=== PATIENT | male | born 1985 | race Caucasian/White ===

== ENCOUNTER 2016-08-17 08:11 | Emergency (ER) | payer OTHER ==
[~2016-08-17] VITALS: Ht 165.1 cm; Wt 74.8 kg
[2016-08-17 08:14] VITALS: BP 123/85
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
[2016-08-17] MEDS ORDERED: IBUPROFEN600 M1 PO (08:57)
== END 2016-08-17 09:09 ==
LOC: ERH 08:11
DX: S39.012A Strain of muscle, fascia and tendon of lower back, initial encounter (principal); S63.601A Unspecified sprain of right thumb, initial encounter; S76.012A Strain of muscle, fascia and tendon of left hip, initial encounter; S76.912A Strain of unspecified muscles, fascia and tendons at thigh level, left thigh, initial encounter; V89.2XXA Person injured in unspecified motor-vehicle accident, traffic, initial encounter